=== PATIENT | female | born 1950 | race Caucasian/White ===

== ENCOUNTER → 2017-05-10 | Outpatient (CLI) | payer MEDICARE, BC ==
[~2017-05-10] MED LIST: COLACE100 MG PO; HUMIRA PED40 MG/0.8 SQ; LEFLUNOMIDE20 MG PO; NAPROSYN500 MG PO; PERCOCET 5-3251 EACH PO; PHENERGAN 12.12.5 M1 PO; PROLIA INJ60 MG/1 ML SC; VENTOLIN HFA8 GM INH; VITAMIN D50000 UNIT PO
== END ==
LOC: MAMO 07:16
DX: Z12.31 Encounter for screening mammogram for malignant neoplasm of breast (principal); Z78.0 Asymptomatic menopausal state; Z98.890 Other specified postprocedural states
CPT/HCPCS: G0202

== ENCOUNTER → 2021-07-07 | Outpatient (CLI) | payer OTHER | LOC: MAMO 13:17 | DX: Z12.31 Encounter for screening mammogram for malignant neoplasm of breast (principal); M81.0 Age-related osteoporosis without current pathological fracture; M85.89 Other specified disorders of bone density and structure, multiple sites | CPT/HCPCS: 77063; 77067; 77080 ==

== ENCOUNTER → 2022-02-12 | Outpatient (CLI) | payer OTHER | LOC: EXRD 08:52 | DX: R05.9 Cough, unspecified (principal); U09.9 Post COVID-19 condition, unspecified | CPT/HCPCS: 71046 ==

== ENCOUNTER → 2022-03-02 | Outpatient (CLI) | payer OTHER | LOC: EXRD 11:19 | DX: M47.22 Other spondylosis with radiculopathy, cervical region (principal); M47.26 Other spondylosis with radiculopathy, lumbar region; M47.814 Spondylosis without myelopathy or radiculopathy, thoracic region | CPT/HCPCS: 71101; 72040; 72070; 72100 ==

== ENCOUNTER → 2022-03-24 | Outpatient (CLI) | payer OTHER | LOC: MRI 12:54 | DX: M54.9 Dorsalgia, unspecified (principal); R93.89 Abnormal findings on diagnostic imaging of other specified body structures; M53.9 Dorsopathy, unspecified; R29.6 Repeated falls; M47.814 Spondylosis without myelopathy or radiculopathy, thoracic region; M51.36 Other intervertebral disc degeneration, lumbar region; M48.061 Spinal stenosis, lumbar region without neurogenic claudication; S32.049A Unspecified fracture of fourth lumbar vertebra, initial encounter for closed fracture | CPT/HCPCS: 70551; 72146; 72148 ==

== ENCOUNTER → 2022-03-24 | Outpatient (CLI) | payer OTHER | LOC: HEART 5 08:30 | DX: I70.0 Atherosclerosis of aorta (principal); R94.31 Abnormal electrocardiogram [ECG] [EKG]; R06.02 Shortness of breath; I08.3 Combined rheumatic disorders of mitral, aortic and tricuspid valves | CPT/HCPCS: 78452; 93306; A9502; J2785 ==

== ENCOUNTER → 2022-05-07 | Outpatient (CLI) | payer OTHER ==
[2022-05-07 14:52] LABS: HEMOGLOBIN 12.1 gm/dl (12.3-15.3)
[2022-05-07 15:08] LABS: BUN/CREATININE RATIO 28 (0-10)
== END ==
LOC: LAB 14:13
PROVIDERS: Nurse Practitioner Family
DX: U07.1 COVID-19 (principal); R05.9 Cough, unspecified; J01.90 Acute sinusitis, unspecified; M25.50 Pain in unspecified joint; R50.9 Fever, unspecified; R27.0 Ataxia, unspecified; E53.8 Deficiency of other specified B group vitamins; E55.9 Vitamin D deficiency, unspecified; R53.83 Other fatigue
CPT/HCPCS: 36415; 80053; 81001; 82607; 84439; 84443; 85025; U0002